=== PATIENT | male | born 1990 | race Caucasian/White ===

== ENCOUNTER 2021-08-29 07:37 | Emergency (ER) | payer MEDICAID, SELFPAY ==
[2021-08-29 07:43] VITALS: BP 159/115; PULSE 127; RESP 16; TEMP 37; O2SAT 95; BMI 29.5
[2021-08-29 08:05] VITALS: BP 159/115; PULSE 124; RESP 15; O2SAT 96
--- NOTE | 2021-08-29 08:09 | ECG_ITS ---
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 Measurements Intervals [place] Rate: 125 P: 45 AK: 140 QRS: 15 QRSD: 89 T: 44 QT: 300 QTc: 433 Interpretive Statements SINUS TACHYCARDIA VOLTAGE CRITERIA FOR LVH [MEETS CRITERIA IN ONE OF: R(aVL), S(V1), R(V5), R(V5/V6)+S(V1)] NONSPECIFIC T-WAVE ABNORMALITY Compared to ECG 09/28/2017 21:24:39 Left ventricular hypertrophy now present T-wave abnormality still present Electronically Signed On 08-29-2021 8:44:59 [employer]PER[employer] by Tashi Crowley M.D. [id number]
--- NOTE | 2021-08-29 08:09 | XRR_ITS ---
PROCEDURE INFORMATION: Exam: XR Chest Exam date and time: 08/29/2021 8:09 AM Age: 31 years old Clinical indication: Cough and dyspnea and shortness of breath; Additional info: Dyspnea/cough TECHNIQUE: Imaging protocol: XR of the chest. Views: 1 view. COMPARISON: No relevant prior studies available. FINDINGS: Lungs: Unremarkable. No consolidation. Pleural spaces: Unremarkable. No pleural effusion. No pneumothorax. Heart/Mediastinum: Unremarkable. No cardiomegaly. Bones/joints: Unremarkable. XR/XR chest 1V portable [id number] IMPRESSION: No acute findings.
--- NOTE | 2021-08-29 08:09 | CT_ITS ---
WS: [id number] CT NECK WITH CONTRAST HISTORY: ear pain, L submandibular mass TECHNIQUE: Contiguous 5 mm axial images are performed through the neck with intravenous contrast. Sag ittal and coronal reformats are also submitted. All CT scans at [facility] use at least one o f these dose optimization techniques: automated exposure control; mA and/or kV adjustment per patient size (includes targeted exams where dose is matched to clinical indication); or iterative reconstruc tion. CONTRAST: CONTRAST: Omnipaque 300; 95 mL IV. DLP: 461.83 mGy.cm COMPARISON: None. There is a large soft tissue mass centered within the superficial LEFT parotid gland and extending in to the deep lobe of the parotid gland to abut the posterior belly of the digastric muscle and about a branch tract of the external carotid artery. This mass is of increased attenuation with enhancement as compared to the normal adjacent parotid gland. Mass measures 3.5 x 3.3 x 3.6 cm. The parapharyngea l fat is normal. No mass in the RIGHT parotid gland. There are small bilateral cervical chain lymph n odes. Largest lymph nodes are bilaterally at level IIa measuring up to 10 mm in diameter. There are a lso level 1A and 1B lymph nodes. Normal fatty tulio are noted. The shape is reniform which is normal. There is mild prominence of the palatine tonsils. This is symmetric. No discrete enhancing mass. Mildly enlarged thyroid with a few small nodules. Mastoid air cells are clear. No soft tissue in the internal or external auditory canals or osseous de struction. No osseous abnormalities. Visualized portions of the skull base demonstrate no abnormalities. Orbits and globes are within norm al limits. No soft tissue masses. Bilateral mucoperiosteal thickening in the ethmoid air cells. No air-fluid levels. Lung apices are clear. CT/CT neck w con* [id number] IMPRESSION: 1. Solid mass centered in the superficial LEFT parotid gland but also extends to the deep lobe with enhancement. Mass measures 3.5 x 3.3 x 3.6 cm. Differenti al includes benign and malignant etiologies. Warthin's tumor, pleomorphic adeno ma and mucoid epidermoid carcinoma should be considered. Surgical excision is r ecommended. 2. There are numerous small bilateral cervical chain lymph nodes. Not signific antly enlarged. 3. Mildly prominent but symmetric palatine tonsils. Direct visualization recom mended.
--- NOTE | 2021-08-29 08:14 | ED_ITS ---
HPI - Arrhythmia/Palpitations General: Chief Complaint: Arrhythmia/Palpitations Stated Complaint: TACHY, POSS ABSCESS Time Seen by Provider: 08/29/21 07:47 History of Present Illness: HPI narrative: 31-year-old male comes in complaining of rapid heart rate. He states he has had this before he has been told it was anxiety. He woke up early this morning went to use the restroom and felt like his heart was racing. She had similar episodes in the past. His only other complaint at this time is left ear pain and had some drainage says been going on for several months he is also had some associated swelling with it inferior to the ear around the angle of the jaw. He was treated for otitis externa with from his description with some drops and oral antibiotics a few months ago. The ear discomfort and drainage seemed to resolve for a time but now has recurred. The swelling never went away. It somewhat disguised by a large trevino that he wears. He has not had any medications initiated for the tachycardia. Denies any chest pain or shortness of breath. MD complaint: rapid heart beat and heart racing Onset (ago): minute(s) Duration: constant Severity: moderate Context: occurred during rest Associated symptoms: Reports anxiety; Deny cough, diaphoresis, muscle cramps, nausea, paresthesias, pre-syncope, sense of impending doom, short of breath, syncope or vomiting Review of Systems Const: Denies: diaphoresis ENMT: Denies: throat pain, ear or mastoid pain, nasal discharge or nasal congestion Card: Denies: syncope or pre-syncope Resp: Denies: dyspnea, productive cough or non-productive cough GI: Denies: nausea or vomiting : Denies: flank pain, dysuria, urinary frequency or urinary urgency Musc: Denies: muscle cramps Skin/Breast: Denies: rash or pruritus Psych: Reports: anxiety [facility] ED PFSH: Medical History (Updated 08/29/21 @ 09:40 by Jasbir Lee DO) Anxiety Mass of left side of neck Tachycardia Social History Smoking and tobacco status: former smoker Physical Exam Const: COMMON NORMALS: no acute distress GENERAL APPEARANCE: cooperative and comfortable ORIENTATION/CONSCIOUSNESS: Yes awake, Yes oriented to person, Yes oriented to place and Yes oriented to time HENMT: COMMON NORMALS: normocephalic, atraumatic, hearing grossly normal bilaterally, external ears normal, TM's normal bilaterally, Normal nasal mucous membranes and turbinates present, moist oral mucous membranes and oropharynx normal HEAD & SCALP: normocephalic and atraumatic NOSE: Normal nasal mucous membranes and turbinates present EXTERNAL EAR: Yes external ears normal TYMPANIC MEMBRANE: TM's normal bilaterally OTHER: Left TM red and inflamed appears to be perforated there is a inflamed nodular area at the floor of the canal just distal from the verge of the tympanic membrane. It is reddened there is no active drainage or purulence no swelling of the canal beyond the small area at the floor the canal that it is inflamed. There is a minimally tender submandibular mass about 3 cm irregularly-shaped nonfluctuant on the left. There is no anterior posterior cervical lymphadenopathy inferior to this. Patient has a rather thick trevino there is no apparent overlying erythe ma or induration of this area. Eye: COMMON NORMALS: Equal, round and reactive pupils present, EOMs intact bilaterally, conjunctivae normal and no scleral icterus CONJUNCTIVA: Yes conjunctivae normal PUPIL: Yes Equal, round and reactive pupils present Neck/C-Spine: COMMON NORMALS: full ROM, supple and no JVD Lymph: LYMPHATIC: no lymphadenopathy noted and no lymphedema noted Resp: COMMON NORMALS: normal respiratory effort, No retractions, No use of accessory muscles and clear to auscultation bilaterally AUSCULTATION: clear to auscultation bilaterally Cardio: COMMON NORMALS: no JVD, regular rate, regular rhythm and No murmurs present (Cardio) RATE: regular rate RHYTHM: regular rhythm GI: COMMON NORMALS: Soft to palpation and No hepatosplenomegaly present AUSCULTATION: Yes normoactive bowel sounds PALPATION: Yes Soft to palpation, No Tenderness to palpation present (GI), No Guarding due to palpation present (GI) and Yes No hepatosplenomegaly present Extremity: COMMON NORMALS: normal to inspection, capillary refill normal, no clubbing, cyanosis or edema, no calf tenderness and no pedal edema Neuro: SENSORIUM/ORIENTATION: Yes oriented to person, Yes oriented to place and Yes oriented to time Skin: COMMON NORMALS: no rashes or lesions noted GENERAL SKIN EXAM: no rashes or lesions noted Course Vital Signs: Vital signs: Vital Signs Temperature 98.6 F 08/29/21 07:43 Pulse Rate 123 H 08/29/21 10:00 Respiratory Rate 21 H 08/29/21 10:00 Blood Pressure 142/78 08/29/21 09:19 Pulse Oximetry 96 08/29/21 10:00 MDM - Arrhythmia/Palpitations MDM Narrative: Medical decision making narrative: Patient has a mass on the left side of the neck in the submandibular area. Does not appear to be an abscess White count is normal. The remainder of his labs are relatively unremarkable. He states he is chronically had elevated heart rate and was told that his anxiety. Can cannot find any other significant abnormality unaware and start him on metoprolol. Should help blood pressure and his heart rate. We have him set up for ENT. He also needs to follow-up with his PCP within the next week to reevaluate blood pressure. He has any problems return. We will have case management get him into ENT set up for PCP to see Dr. Wagner and to have a 48-hour Holter monitor. Lab Data: Labs: Lab Results 08/29/21 08/29/21 08/29/21 08:00 08:00 08:00 WBC 7.4 10^3/uL 10^3/ uL (4.0-10.0) RBC 5.60 10^6/uL H 10 ^6/uL (4.1-5.3) Hgb 16.3 g/dL g/dL (11.7-16.6) Hct 46.9 % % (42.0-52.0) MCV 83.8 fl fl (80-94) MCH 29.1 pg pg (28.0-34.0) MCHC 34.8 g/dL g/dL (30.0-36.0) RDW 11.4 % L % (12.1-15.1) Plt Count 306 10^3/cmm 10^3 /cmm (130-400) MPV 9.4 fL fL (7.4-10.4) Neut % (Auto) 43.6 % % Lymph % (Auto) 44.5 % % [place] % (Auto) 8.3 % % Eos % (Auto) 2.4 % % Baso % (Auto) 0.7 % % Neut # (Auto) 3.22 10^3/uL 10^3 /uL (1.8-7.7) Lymph # (Auto) 3.3 10^3/uL 10^3/ uL (0.8-4.8) [place] # (Auto) 0.6 10^3/uL 10^3/ uL (0.2-0.9) Eos # (Auto) 0.2 10^3/uL 10^3/ uL (0.0-0.8) Baso # (Auto) 0.1 10^3/uL 10^3/ uL (0.0-0.1) Nucleated RBC % (a uto) 0 % % Nucleated RBCs # 0.0 /100WBC /100W BC Sodium 139 mmol/L mmol/L (136-145) Potassium 3.7 mmol/L mmol/L (3.5-5.1) Chloride 103 mmol/L mmol/L (98-107) Carbon Dioxide 20 mmol/L L mmol/ L (22-29) Anion Gap 19.7 H (5-19) BUN 7 mg/dL mg/dL (6-20) Creatinine 0.5 mg/dL L mg/dL (0.7-1.2) GFR Calculation 191.5 mL/min H mL /min (90-130) Glucose 101 mg/dL mg/dL (65-115) Calculated Osmolal ity 286 mOsm/kg mOsm/ kg (285-295) Calcium 9.0 mg/dL mg/dL (8.5-10.5) Total Bilirubin 0.5 mg/dL mg/dL (0.15-1.2) AST 26 U/L U/L (0-40) ALT 44 U/L H U/L (0-41) Alkaline Phosphata se 94 IU/L IU/L (40-130) Troponin T Baselin e 9 ng/L ng/L (0-15) Total Protein 6.7 g/dL g/dL (6.6-8.7) Albumin 4.1 g/dL g/dL (3.5-5.2) Globulin 2.6 g/dL g/dL (1.3-4.6) Discharge Plan Discharge Patient Disposition: Home Clinical Impression: Mass of left side of neck, Palpitations, Sinus tachycardia, Benign essential HTN Condition: Stable Prescriptions: New Toprol XL 50 mg tablet extended release 24 hr 50 mg PO DAILY Qty: 30 RF: 0 No Action cephalexin 500 mg capsule 500 mg PO TID 7 Days Qty: 21 RF: 0 Discharge Orders: Discharge ED (Routine); Ordered 08/29/21 Ordered By: Jasbir Lee Referrals: Arben Lorenzana [Primary Care Provider] - Discharge Diet: Usual diet Discharge Activity: Limit activity as instructed Patient Instructions: Opioid Safety Activity Restrictions/Additional Instructions: Avoid strenuous activities. writing manager will make an arrangement for you to see ENT. Start Toprol-XL 50 mg once daily to help with heart rate and blood pressure. If you have any worsening or change problems return to the emergency room. Coding Level of Care Code ED Hadoop Infrastructure Architect for Maria Luisa Fwsantosh Exam Comprehensive
[2021-08-29 08:16] VITALS: BP 159/115; PULSE 124; RESP 23
[2021-08-29 08:21] LABS: Basophils # 0.1 10^3/uL (0.0-0.1); Basophils % 0.7 %; Eosinophils # 0.2 10^3/uL (0.0-0.8); Eosinophils % 2.4 %; Hematocrit 46.9 % (42.0-52.0); Hemoglobin 16.3 g/dL (11.7-16.6); Lymphocytes # 3.3 10^3/uL (0.8-4.8); Lymphocytes % 44.5 %; Mean Corpuscular HGB Conc 34.8 g/dL (30.0-36.0); Mean Corpuscular Hemoglobin 29.1 pg (28.0-34.0); Mean Corpuscular Volume 83.8 fl (80-94); Mean Platelet Volume 9.4 fL (7.4-10.4); Monocytes # 0.6 10^3/uL (0.2-0.9); Monocytes % 8.3 %; Neutrophils # 3.22 10^3/uL (1.8-7.7); Neutrophils % 43.6 %; Nucleated Red Blood Cells % 0 %; Platelet Count 306 10^3/cmm (130-400); Red Cell Distribution Width 11.4 % (12.1-15.1); White Blood Count 7.4 10^3/uL (4.0-10.0)
[2021-08-29] MEDS: metoprolol tartrate 1 mg/1 mL SDV 5 mL 5 MG IVP (08:21)
[2021-08-29 08:34] LABS: Alanine Aminotransferase 44 U/L (0-41); Albumin Level 4.1 g/dL (3.5-5.2); Alkaline Phosphatase 94 IU/L (40-130); Anion Gap 19.7 (5-19); Aspartate Amino Transferase 26 U/L (0-40); Blood Urea Nitrogen 7 mg/dL (6-20); Carbon Dioxide 20 mmol/L (22-29); Chloride 103 mmol/L (98-107); Globulin 2.6 g/dL (1.3-4.6); Glomerular Filtration Rate 191.5 mL/min (90-130); Glucose 101 mg/dL (65-115); Osmolality Calculated 286 mOsm/kg (285-295); Potassium 3.7 mmol/L (3.5-5.1); Sodium 139 mmol/L (136-145); Total Bilirubin 0.5 mg/dL (0.15-1.2); Total Protein 6.7 g/dL (6.6-8.7)
[2021-08-29 08:35] LABS: Troponin(5th) Baseline 9 ng/L (0-15)
[2021-08-29] MEDS: iohexol 300 mg/mL 100 mL Btl IV (08:46)
[2021-08-29 09:19] VITALS: BP 142/78; PULSE 112; RESP 17; O2SAT 94
[2021-08-29 10:00] VITALS: PULSE 123; RESP 21; O2SAT 96
--- NOTE | 2021-09-03 12:05 | DCPLANNER ---
manager income tax had message to schedule a follow up appointment for patient with ENT for a left neck mass. Venkatesh santiago emailed patients information to both Charleen and Phoebe at [facility] General Surgery / ENT clinic. Patients information will be printed and reviewed. Clinic will call patient with appointment information. Venkatesh abrams also had message to schedule a follow up appointment for patient with Dr. Wagner and an outpatient 48 hour halter monitor. Venkatesh abrams faxed signed order for the halter monitor to [facility] for halter monitor, who will call patient with appointment information. Venkatesh abrams called the office of Dr. Wagner, spoke with Rojelio, gave clinic patients information. A follow up appointment was scheduled for Saturday, September 11, 2021 at 11:[address] Wagner. Clinic will call patient with appointment information.
--- NOTE | 2021-09-04 07:21 | DCPLANNER ---
Patient has a follow up appointment scheduled for Thursday, September 16, 2021 at 2:[address] Gonzalez at [facility] General Surgery / ENT. Clinic will call patient with appointment information.
--- NOTE | 2021-09-24 08:20 | DCPLANNER ---
Addendum entered by Gladis Ross 10/11/21 10:22: Patient had a follow up appointment scheduled with Dr. Wagner - patient did attend appointment. Original Note: Patient had a follow up appointment scheduled for 09.16.[address] Gonzalez at ENT - patient did attend appointment. Patient had a follow up appointment scheduled for 09.11.21 at [facility] for a monitor - patient did attend appointment. Patient had a follow up appointment scheduled with Dr. Wagner for 09.11.21 - this appointment was rescheduled for Saturday, September 25, 2021 at 1:00.
== END 2021-08-29 10:01 | disposition home or self-care (01) ==
PROVIDERS: Emergency Provider Family Medicine; PCP Family Medicine
DX: R00.2 Palpitations (principal); R00.0 Tachycardia, unspecified; I10 Essential (primary) hypertension; R22.1 Localized swelling, mass and lump, neck; Z87.891 Personal history of nicotine dependence
CPT/HCPCS: 36415; 70491; 71045; 80053; 84484; 85025; 87040; 93005; 96374; 99284; J3490; Q9967

== ENCOUNTER → 2021-10-03 15:45 | Outpatient (BNVA) | payer MEDICAID, SELFPAY | PROVIDERS: PCP Internal Medicine; Visit Provider Internal Medicine | DX: R00.0 Tachycardia, unspecified (principal) | CPT/HCPCS: 84439; 84443 ==

== ENCOUNTER → 2021-10-17 15:27 | Outpatient (BNVA) | payer MEDICAID, SELFPAY | PROVIDERS: PCP Internal Medicine; Visit Provider Internal Medicine | DX: E05.90 Thyrotoxicosis, unspecified without thyrotoxic crisis or storm (principal) | CPT/HCPCS: 83516 ==

== ENCOUNTER → 2021-12-16 10:50 | Outpatient (BNVA) | payer MEDICAID, SELFPAY | PROVIDERS: PCP Internal Medicine; Visit Provider Internal Medicine | DX: E05.00 Thyrotoxicosis with diffuse goiter without thyrotoxic crisis or storm (principal) | CPT/HCPCS: 84443 ==

== ENCOUNTER → 2021-12-19 11:50 | Outpatient (BNVA) | payer MEDICAID, SELFPAY | PROVIDERS: PCP Internal Medicine; Visit Provider Internal Medicine | DX: E05.00 Thyrotoxicosis with diffuse goiter without thyrotoxic crisis or storm (principal) | CPT/HCPCS: 84443 ==

== ENCOUNTER → 2022-02-05 14:12 | Outpatient (BNVA) | payer MEDICAID, SELFPAY | PROVIDERS: PCP Internal Medicine; Visit Provider Internal Medicine Cardiovascular Disease | DX: R07.89 Other chest pain (principal); R00.0 Tachycardia, unspecified; D49.0 Neoplasm of unspecified behavior of digestive system; E05.00 Thyrotoxicosis with diffuse goiter without thyrotoxic crisis or storm | CPT/HCPCS: 93005; 99204 ==

== ENCOUNTER 2022-02-18 11:12 | Outpatient (CLI) | payer MEDICAID, SELFPAY ==
[2022-02-18 11:38] VITALS: BMI 32.8
--- NOTE | 2022-02-18 11:39 | ECG_ITS ---
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 Interpretive Statements NAME OF STUDY: TREADMILL STRESS TEST INDICATION: Chest Pain, PROCEDURE: At the baseline, the patient's blood pressure was 124/76 with a heart rate of 86. The baseline electrocardiogram showed normal sinus rhythm with normal ST-Ts. Poor R wave progression. The patient exercised for 9 minutes on a standard Jonny protocol. Patient attained a maximum heart rate of 159 beats per minute(85% of the maximum predicted heart rate) with a blood pressure at the peak exercise of 199/80 mm Hg. The EKG at the peak exercise revealed no significant changes. Patient did not have any chest pain or any significant cardiac arrhythmias with the exercise During the recovery phase, there were no new changes. Blood pressure at the end of the recovery phase was 135/76 mm Hg with a heart rate of 94 per minute. CONCLUSION: 1. Normal EKG response to treadmill exercise 2. No exercise-induced chest pain or cardiac arrhythmia 3. Good exercise tolerance, attained a maximum of 10.2 METs Electronically Signed On 02-21-2022 6:53:26 CDT by Dmitriy Yañez M.D. [id number]
[2022-02-18 12:21] VITALS: BP 135/76; PULSE 94
== END 2022-02-18 11:13 | disposition home or self-care (01) ==
LOC: CDL 11:13
PROVIDERS: PCP Internal Medicine; Visit Provider Internal Medicine Cardiovascular Disease
DX: R07.9 Chest pain, unspecified (principal)
CPT/HCPCS: 93017

== ENCOUNTER → 2022-08-12 16:06 | Outpatient (BNVA) | payer MEDICAID, SELFPAY | PROVIDERS: PCP Internal Medicine; Visit Provider Nurse Practitioner Family | DX: R05.9 Cough, unspecified (principal); J11.1 Influenza due to unidentified influenza virus with other respiratory manifestations | CPT/HCPCS: 87400; 87426 ==